=== PATIENT | female | born 1935 | race Two or more races ===

== ENCOUNTER 2016-07-15 23:43 | Emergency (ER) | payer MEDICARE, MEDICAID ==
[~2016-07-15] VITALS: Ht 154.9 cm; Wt 58.1 kg
[2016-07-16] MEDS ORDERED: GUAIFENESIN/D-METHORPHAN HB 5 ML UDC ONE (00:39)
[2016-07-16] MEDS ORDERED: GUAIFENESIN/D-METHORPHAN HB 5 ML UDC PO ONE (01:00)
[2016-07-16 02:13] VITALS: BP 139/72
== END 2016-07-16 02:15 | disposition home or self-care (01) ==
LOC: ER 23:43
DX: J06.9 Acute upper respiratory infection, unspecified (principal); R91.8 Other nonspecific abnormal finding of lung field; I51.7 Cardiomegaly; I48.91 Unspecified atrial fibrillation; I10 Essential (primary) hypertension; Z86.73 Personal history of transient ischemic attack (TIA), and cerebral infarction without residual deficits; Z88.6 Allergy status to analgesic agent
CPT/HCPCS: 71010; 99283; A4606; Z7610

== ENCOUNTER 2019-05-09 00:06 | Emergency (ER) | payer MEDICARE, MEDICAID ==
[~2019-05-09] VITALS: Ht 157.5 cm; Wt 68.0 kg
--- NOTE | 2019-05-09 00:25 | NUR ---
PT BIB [facility] FROM HOME C/O HIGH BLOOD PRESSURE. PT STATES THAT SHE IS ANXIOUS THAT HER BLOOD PRESSURE DID NOT COME DOWN AFTER TAKING MEDICATION. PT STATES SHE HEARS SWOOSHING SOUNDS. AAOX4. NO SOB. BLOOD PRESSURE AT 141/68 UPON ASSESSMENT. CONNECTED TO MONITOR. LITTLE BROTHER AT BEDSIDE. AWAITING MD BOWERS.
[2019-05-09 01:17] LABS: CALCIUM, SERUM 9.5 mg/dL (8.5-10.1); CARBON DIOXIDE 29 mmol/L (21-32); CHLORIDE 105 mmol/L (98-107); CREATININE 0.8 mg/dL (0.6-1.3); GLUCOSE 146 mg/dL (74-106); POTASSIUM 3.3 mmol/L (3.5-5.1); SODIUM SERUM 142 mmol/L (136-145); UREA NITROGEN, BLOOD 23 mg/dL (7-18)
[2019-05-09 01:40] VITALS: BP 115/54
== END 2019-05-09 01:41 | disposition home or self-care (01) ==
LOC: ER 00:08
DX: I10 Essential (primary) hypertension (principal); I48.91 Unspecified atrial fibrillation; Z98.890 Other specified postprocedural states; Z88.6 Allergy status to analgesic agent; Z86.73 Personal history of transient ischemic attack (TIA), and cerebral infarction without residual deficits
CPT/HCPCS: 36415; 80048-TC; 84484-TC